=== PATIENT | female | born 1940 | race Native Hawaiian/Other Pacific Islander ===

== ENCOUNTER 2017-01-09 09:43 | Inpatient (IN) | payer MEDICARE, OTHER ==
[2017-01-09 09:58] VITALS: BMI 32.6
[2017-01-09] MEDS ORDERED: Sodium Chloride 0.9% 1,000 ML IV STA (10:15)
[2017-01-09] MEDS ORDERED: Iohexol 240 (50 ml) PO STA (10:15)
[2017-01-09] MEDS ORDERED: Iohexol 240 (50 ml) ONE (10:25)
[2017-01-09] MEDS ORDERED: Sodium Chloride 0.9% 1,000 ML ONE (10:25)
--- NOTE | 2017-01-09 10:41 | C.PDOC ---
History Of Present Illness 76 y/o female presents to the ED with complains of RUQ abdominal pain x3 days with associated nausea and vomiting since last night. Pt denies fever, chills, chest pain, SOB, urinary symptoms or any other complaints. Time Seen by Provider: 01/09/17 10:08 Chief Complaint (Nursing): Abdominal Pain History Per: Patient History/Exam Limitations: no limitations Onset/Duration Of Symptoms: Days Current Symptoms Are (Timing): Still Present Location Of Pain/Discomfort: RUQ Radiation Of Pain To:: None Quality Of Discomfort: "Pain" Associated Symptoms: Nausea, Vomiting. denies: Fever, Chills, Diarrhea, Chest Pain, Urinary Symptoms Exacerbating Factors: None Alleviating Factors: None Recent travel outside of the [place]: No Past Medical History Vital Signs: Last Vital Signs Temp 97.5 F L 01/09/17 16:47 Pulse 67 01/09/17 16:47 Resp 20 01/09/17 16:47 BP 113/63 01/09/17 16:47 Pulse Ox 98 01/09/17 16:47 - Medical History PMH: CHF, COPD, HTN - [facility] Procedures EXCISION OF STOMACH, ENDO, DIAGN (08/05/16) INSERTION OF INFUSION DEV INTO SUP VENA CAVA, PERC APPROACH (08/05/16) TRANSFUSE NONAUT RED BLOOD CELLS IN PERIPH VEIN, PERC (08/05/16) ULTRASONOGRAPHY OF SUPERIOR VENA CAVA, GUIDANCE (08/05/16) Family History: States: Unknown Family Hx - Social History Hx Alcohol Use: No Hx Substance Use: No Review Of Systems Except As Marked, All Systems Reviewed And Found Negative. Constitutional: Negative for: Fever, Chills Cardiovascular: Negative for: Chest Pain Respiratory: Negative for: Shortness of Breath Gastrointestinal: Positive for: Nausea, Vomiting, Abdominal Pain. Negative for : Diarrhea Genitourinary: Negative for: Dysuria, Hematuria Physical Exam - Physical Exam Appears: Non-toxic, No Acute Distress, Unkempt, Other (smells of urine) Skin: Warm, Dry, No Rash Head: Atraumatic, Normacephalic Oral Mucosa: Moist Neck: Normal ROM, Supple Chest: Symmetrical Cardiovascular: Rhythm Regular, No Murmur Respiratory: Normal Breath Sounds, No Rales, No Rhonchi, No Wheezing Gastrointestinal/Abdominal: Soft, Tenderness (RLQ), No Guarding, No Rebound Extremity: Normal ROM Extremity: Bilateral: Atraumatic Neurological/Psych: Oriented x3 ED Course And Treatment - Laboratory Results Result Diagrams: 01/09/17 10:27 01/09/17 10:27 O2 Sat by Pulse Oximetry: 98 (on room air) Pulse Ox Interpretation: Normal - CT Scan/US Abdomen/pelvis Other Rad Studies (CT/US): Read By Radiologist, Radiology Report Reviewed CT/US Interpretation: Accession No. : [id number]. Patient Name / ID : DIAZ EL / [id number]. Exam Date : 01/09/2017 13:11:32 ( Approved ). Study Comment : Sex / Age : F / 76Y. Creator : Silverio Aparicio MD. Dictator : Silverio Aparicio MD. Retail Store Associate : Behavioral Health Worker : Silverio Aparicio MD. Approver2 : Report Date : 01/09/2017 14:00:51. My Comment : . PROCEDURE: CT Abdomen and Pelvis with Oral contrast. HISTORY: R sided abdominal pain/vomiting. COMPARISON: CT from 03/02/2013. TECHNIQUE: Contiguous axial images of the abdomen and pelvis. IV and Oral contrast was administered. Coronal and Sagittal reformats generated. Contrast dose: Radiation dose: Total exam DLP = 874.78 mGy-cm. FINDINGS: LOWER THORAX: Mild bibasilar atelectatic changes noted. Segments of bronchiectasis noted in the medial left lower lobe. LIVER: Probable hepatic cysts. GALLBLADDER AND BILE DUCTS: Unremarkable. PANCREAS: Unremarkable. No mass. No ductal dilatation. SPLEEN: Unremarkable. No splenomegaly. ADRENALS: 1 centimeter adrenal nodule, marginally increased in size when compared to the prior CT. KIDNEYS AND URETERS: Irregularity of both renal cortices likely from old injury versus infection. Otherwise symmetric nephrograms. BLADDER: Grossly unremarkable. REPRODUCTIVE: Unremarkable. APPENDIX: Unremarkable. BOWEL: Unremarkable. No obstruction. No gross mural thickening. Collapsed large bowel, limiting evaluation. Oral contrast has reached the distal small bowel at the time of evaluation. Hiatal hernia once again noted. Collapsed stomach limiting evaluation. PERITONEUM: Unremarkable. No fluid collection. No free air. LYMPH NODES: No bulky lymphadenopathy. VASCULATURE: Unremarkable. No aortic aneurysm. BONES: T12 compression deformity, essentially unchanged. OTHER FINDINGS: Fat containing ventral hernia. IMPRESSION: No acute bowel pathology. Slightly limited evaluation due to collapse configuration of the large bowel. 1 centimeter adrenal nodule, marginally increased in size when compared to prior CT from 05/2013. T12 compression deformity, essentially unchanged since prior CT. Atelectasis and bronchiectasis in the medial aspect of the left lower lobe, essentially unchanged. Progress Note: Plan: CT abdomen, labs, UA, IV fluids, zofran, protonix. On re- exam patient sts she still feels nauseous. Pt's PMD was called and accepted patient for observation. Disposition - Disposition Disposition: HOSPITALIZED Disposition Time: 15:39 Condition: FAIR - Clinical Impression Clinical Impression: Gastroenteritis - PA / INTERNET RETAILER / Resident Statement MD/DO has reviewed & agrees with the documentation as recorded. - Scribe Statement The provider has reviewed the documentation as recorded by the Lamonte Edwards All medical record entries made by the Lamonte were at my direction and personally dictated by me. I have reviewed the chart and agree that the record accurately reflects my personal performance of the history, physical exam, medical decision making, and the department course for this patient. I have also personally directed, reviewed, and agree with the discharge instructions and disposition. Decision To Admit - Pt Status Changed To: Hospital Disposition Of: Observation - . Bed Request Type: Regular Admitting Physician: Zeeshan Garcia Patient Diagnosis: Gastroenteritis
[2017-01-09 10:46] LABS: BASO # 0.1 K/uL (0.0-0.2); BASO % 0.4 % (0.0-2.0); EOS % 0.1 % (0.0-4.0); HEMATOCRIT 39.8 % (34.0-47.0); LYMPH # 1.3 K/uL (1.0-4.3); LYMPH % 8.7 % (20.0-40.0); MEAN CELL VOLUME 78.6 fL (81.0-99.0); MEAN CORPUSCULAR HEMOGLOBIN 26.9 pg (27.0-31.0); MEAN CORPUSCULAR HGB CONC 34.2 g/dL (33.0-37.0); MEAN PLATELET VOLUME 7.7 fL (7.2-11.7); MONO # 0.5 K/uL (0.0-0.8); MONO % 3.6 % (0.0-10.0); PLATELET COUNT 442 K/uL (130-400); RED CELL DISTRIBUTION WIDTH 13.9 % (11.5-14.5)
[2017-01-09 10:52] LABS: CHLORIDE 89 mmol/L (98-107)
[2017-01-09 10:53] LABS: POTASSIUM 3.6 mmol/L (3.6-5.2); SODIUM 130 mmol/L (132-148)
[2017-01-09 10:55] LABS: ALB/GLOB RATIO 1.1 (1.0-2.1); ALKALINE PHOSPHATASE 201 U/L (38-126); AST/SGOT 27 U/L (14-36); BILIRUBIN,TOTAL 0.6 mg/dL (0.2-1.3); BLOOD UREA NITROGEN 14 mg/dL (7-17); CARBON DIOXIDE 24 mmol/L (22-30); GFR AFRICAN-AMERICAN > 60
[2017-01-09 10:56] LABS: ALT/SGPT 33 U/L (9-52); GLUCOSE,RANDOM 139 mg/dL (65-105)
[2017-01-09 11:14] LABS: BASOPHIL 1 % (0-2); NEUTROPHIL 83 % (50-75); TOTAL CELLS COUNTED 100
[2017-01-09 11:54] LABS: RBC URINE 1 /hpf (0-3); URINE BILIRUBIN NEGATIVE (NEGATIVE); URINE BLOOD NEGATIVE (NEGATIVE); URINE COLOR Straw (YELLOW); URINE GLUCOSE (UA) NORMAL (Normal); URINE KETONE NEGATIVE (NEGATIVE); URINE LEUKOCYTE ESTERASE NEG Leu/uL (Negative); URINE PROTEIN 2+ mg/dL (NEGATIVE); URINE UROBILINOGEN NORMAL mg/dL (0.2-1.0)
[2017-01-09] MEDS ORDERED: Iodixanol 320 MG/ML 100 ML BOTTLE IV ONE (13:01)
--- NOTE | 2017-01-09 14:02 | CT ---
PROCEDURE: CT Abdomen and Pelvis with Oral contrast. HISTORY: R sided abdominal pain/vomiting COMPARISON: CT from 03/02/2013. TECHNIQUE: Contiguous axial images of the abdomen and pelvis. IV and Oral contrast was administered. Coronal and Sagittal reformats generated. Contrast dose: Radiation dose: Total exam DLP = 874.78 mGy-cm. FINDINGS: LOWER THORAX: Mild bibasilar atelectatic changes noted. Segments of bronchiectasis noted in the medial left lower lobe. LIVER: Probable hepatic cysts. GALLBLADDER AND BILE DUCTS: Unremarkable. PANCREAS: Unremarkable. No mass. No ductal dilatation. SPLEEN: Unremarkable. No splenomegaly. ADRENALS: 1 centimeter adrenal nodule, marginally increased in size when compared to the prior CT. KIDNEYS AND URETERS: Irregularity of both renal cortices likely from old injury versus infection. Otherwise symmetric nephrograms. BLADDER: Grossly unremarkable. REPRODUCTIVE: Unremarkable. APPENDIX: Unremarkable. BOWEL: Unremarkable. No obstruction. No gross mural thickening. Collapsed large bowel, limiting evaluation. Oral contrast has reached the distal small bowel at the time of evaluation. Hiatal hernia once again noted. Collapsed stomach limiting evaluation. PERITONEUM: Unremarkable. No fluid collection. No free air. LYMPH NODES: No bulky lymphadenopathy. VASCULATURE: Unremarkable. No aortic aneurysm. BONES: T12 compression deformity, essentially unchanged. OTHER FINDINGS: Fat containing ventral hernia. IMPRESSION: No acute bowel pathology. Slightly limited evaluation due to collapse configuration of the large bowel. 1 centimeter adrenal nodule, marginally increased in size when compared to prior CT from 03/02/2013. T12 compression deformity, essentially unchanged since prior CT. Atelectasis and bronchiectasis in the medial aspect of the left lower lobe, essentially unchanged.
--- NOTE | 2017-01-09 20:46 | HP ---
HISTORY OF PRESENT ILLNESS: This is a 76-year-old Brazilian female who came to the Emergency Room with a history of severe abdominal pain. The pain is in the right upper quadrant. The patient has had th is pain for the last 3 days. The patient also complained of nausea and vomiting since last night. T he patient denies having any fever or chills. The patient complains of pain in the chest. No shortn ess of breath. The patient denies any urinary complaint. REVIEW OF SYSTEMS: CARDIOVASCULAR: Positive for chest pain. RESPIRATORY: Positive for shortness of breath. GASTROINTESTINAL: Positive for nausea and vomiting and abdominal pain. CENTRAL NERVOUS SYSTEM: Generalized weakness. GENITOURINARY: No urinary complaints. No fever. PSYCHIATRIC: The patient is stable. All other systems are negative. PAST MEDICAL HISTORY: History of congestive heart failure, chronic obstructive pulmonary disease, an d hypertension. MEDICATIONS: Are reviewed by me. ALLERGIES: No known allergy. FAMILY HISTORY: No known inherited disease. SOCIAL HISTORY: Nonsmoker, nonalcoholic. PHYSICAL EXAMINATION: GENERAL: This is a 76-year-old Brazilian female, alert, oriented. VITAL SIGNS: Temperature 97.5, pulse 67, respiration 20, blood pressure 113/63 mmHg, pulse ox is 98% at room air. HEENT: Normal. NECK: JVP is flat. Carotids, no bruit. LUNGS: No rales, no wheezing. HEART: S1, S2 normal. No gallop, no murmur. ABDOMEN: Soft, nontender, no organomegaly. CENTRAL NERVOUS SYSTEM: No focal neurological deficit. EXTREMITIES: No edema of the legs. LABORATORY DATA: On admission, white cell count is elevated to 15,000. Hemoglobin is 13.6. Sodium is 130. Blood sugar is 139. The patient had a CAT scan of the abdomen done, which is unremarkable. IMPRESSION: 1. Severe abdominal pain. Acute gastritis. Rule out acute diverticulitis. 2. Leukocytosis. 3. Hyponatremia. 4. Arteriosclerotic heart disease. PLAN: The patient will be admitted to the floor. Will get GI evaluation. Will give IV fluids and I V antibiotics. Other workup as needed. Zeeshan Garcia MD cc: [phone] TT: 01/09/2017 20:46:42 dn
[2017-01-09] MEDS: Piperacill/Tazo 3.375gm in Dex 50 ML IVPB SCH (22:47)
[2017-01-09] MEDS: Dextrose 5%/0.9% NS 1,000 ML IV SCH (22:48)
[2017-01-10] MEDS: Piperacill/Tazo 3.375gm in Dex 50 ML IVPB SCH ×3 (03:29→20:30)
[2017-01-10] MEDS: Dextrose 5%/0.9% NS 1,000 ML IV SCH ×2 (06:11→15:24)
[2017-01-10] MEDS ORDERED: Albuterol 0.083% Inhal Sol (2.5 mg/3 mL) UD INH ONE (09:37)
--- NOTE | 2017-01-10 10:08 | CP.PCM.CON ---
<Gardenia Christensen - Last Filed: 01/10/17 11:20> History of Present Illness - History of Present Illness History of Present Illness: Gastroenterology Fellow/PGY4 Consult Note 76 year old female with history of COPD, Hypertension, and Upper GI bleed secondary to PUD 07/2016 presenting with abdominal pain. Son at bedside provides translation assistance. Patient states right upper abdominal pain since Thursday not relieved by lidoderm cream provided by PCP. Family reports a fall four weeks ago onto right side after missing one step. Patient was given lidoderm cream and patch for relief. She did not like the patch so she has not been using it. She describes it as intermittent, wax/waning without radiation to back or other abdominal quadrants. Associated nausea without vomiting. Son notes onset of diarrhea four days ago that resolved with progression to the abdominal pain. At present, pain is a 6/10 with ongoing nausea and loss of appetite since Thursday. Denies diarrhea at present, vomiting, fever, chills, sweats, postprandial pain, bloating, indigestion, heartburn, acid reflux, abdominal distension, weight loss, melena, hematochezia, hematemesis, sick contacts, recent antibiotics, or recent travel. Denies NSAID use or alcohol use. Prior EGD 07/2016 with multiple linear gastric ulcers, 1.5cm gastric ulcerated nodule, diffuse duodenal bulb erosions, and H pylori positive. No prior colonoscopy. Family-denies colon cancer Social-denies tobacco, alcohol, illicit drug use Surgery- none Review of Systems - Review of Systems Review of Systems: A 12-point review of systems negative except for as above Past Patient History - Infectious Disease Hx of Infectious Diseases: None - Past Medical History & Family History Past Medical History?: Yes - Past Social History Smoking Status: Current Some Days Smoker - CARDIAC Hx Congestive Heart Failure: Yes Hx Hypertension: Yes - PULMONARY Hx Chronic Obstructive Pulmonary Disease (COPD): Yes - MUSCULOSKELETAL/RHEUMATOLOGICAL Hx Falls: No - GENITOURINARY/GYNECOLOGICAL Hx Incontinence: Yes - PSYCHIATRIC Hx Substance Use: No - SURGICAL HISTORY Hx Surgeries: No - ANESTHESIA Hx Anesthesia: No Meds Allergies/Adverse Reactions: Allergies Allergy/AdvReac Type Severity Reaction Status Date / Time No Known Allergies Allergy Verified 01/09/17 09:57 - Medications Medications: Current Medications Albuterol Sulfate (Albuterol 0.083% Inhal Raissa (2.5 Mg/3 Ml) Ud) 2.5 mg INH RQ6 [facility] Clonidine HCl (Catapres) 0.2 mg PO BID [facility] Enoxaparin Sodium (Lovenox) 40 mg SC DAILY [facility] Furosemide (Lasix) 20 mg PO DAILY [facility] Dextrose/Sodium Chloride (Dextrose 5%/0.9% Ns 1000 Ml) 1,000 mls @ 100 mls/hr IV .Q10H [facility] Last Admin: 01/10/17 06:11 Dose: Not Given Piperacillin Sod/Tazobactam Sod (Zosyn 3.375 Gm Iv Premix) 50 mls @ 100 mls/hr IVPB Q8H [facility] Last Admin: 01/10/17 03:29 Dose: 100 mls/hr Influenza Virus Vaccine (Afluria) 45 mcg IM .ONCE ONE Stop: 01/11/17 10:01 Losartan Potassium (Cozaar) 100 mg PO DAILY [facility] Metoprolol Succinate (Toprol Xl) 100 mg PO DAILY [facility] Morphine Sulfate (Morphine) 2 mg IVP Q6 PRN PRN Reason: Pain, moderate (4-7) Ondansetron HCl (Zofran Inj) 4 mg IVP Q6 PRN PRN Reason: Nausea/Vomiting Pantoprazole Sodium (Protonix Inj) 40 mg IVP DAILY [facility] Pneumococcal Polyvalent Vaccine (Pneumovax 23 Vaccine) 0.5 ml IM .ONCE ONE Stop: 01/11/17 10:01 Physical Exam - Constitutional Appears: Non-toxic, No Acute Distress - Head Exam Head Exam: ATRAUMATIC, NORMOCEPHALIC - Eye Exam Eye Exam: EOMI, PERRL Pupil Exam: PERRL. absent: Miosis, Mydriatic - ENT Exam ENT Exam: Mucous Membranes Moist, Normal Oropharynx - Neck Exam Neck exam: Positive for: Full Rom, Normal Inspection - Respiratory Exam Respiratory Exam: Clear to Auscultation Bilateral. absent: Rales, Rhonchi, Wheezes - Cardiovascular Exam Cardiovascular Exam: RRR, +S1, +S2. absent: Gallop, Rubs - GI/Abdominal Exam GI & Abdominal Exam: Hernia, Normal Bowel Sounds, Soft, Tenderness. absent: Distended, Firm, Guarding, Organomegaly, Rebound, Rigid Additional comments: RUQ tenderness, negative Garcia's sign, umbilical hernia - Extremities Exam Extremities exam: Positive for: full ROM, pedal edema - Neurological Exam Neurological exam: Alert - Psychiatric Exam Psychiatric exam: Normal Affect, Normal Mood - Skin Skin Exam: Dry, Intact, Normal Color, Warm Results - Vital Signs Recent Vital Signs: Last Vital Signs Temp 98.0 F 01/10/17 08:11 Pulse 84 01/10/17 08:11 Resp 20 01/10/17 08:11 BP 170/85 H 01/10/17 08:11 Pulse Ox 96 01/10/17 08:11 - Labs Result Diagrams: 01/09/17 10:27 01/09/17 10:27 Assessment & Plan - Assessment and Plan (Free Text) Assessment: 76 year old female with history of COPD, Hypertension, and Upper GI bleed secondary to PUD 07/2016 presenting with abdominal pain. CT A/P showing hepatic cysts, unremarkable gallbladder, and normal bowel loops. Prior EGD 07/2016 with multiple linear gastric ulcers, 1.5cm gastric ulcerated nodule, diffuse duodenal bulb erosions, and H pylori positive. No prior colonoscopy. Right upper quadrant pain Rib cage pain Nausea/diarrhea Plan: >ordered rib xray to evaluate for fracture >if diarrhea recurs- send Cdiff , stool culture >ordered Abdominal U/S to evaluate hepatic cysts >on Zosyn >continue supportive care: PPI, IVFs, pain control, anti-emetics >recommend elective EGD for PUD surveillance outpatient >further recommendations as follow clinical course <Shahbaz BOSWELL,Dashawn - Last Filed: 01/10/17 12:04> Meds - Medications Medications: Current Medications Albuterol Sulfate (Albuterol 0.083% Inhal Raissa (2.5 Mg/3 Ml) Ud) 2.5 mg INH RQ6 [facility] Clonidine HCl (Catapres) 0.2 mg PO BID [facility] Last Admin: 01/10/17 11:01 Dose: 0.2 mg Enoxaparin Sodium (Lovenox) 40 mg SC DAILY [facility] Last Admin: 01/10/17 11:01 Dose: 40 mg Furosemide (Lasix) 20 mg PO DAILY [facility] Last Admin: 01/10/17 11:00 Dose: 20 mg Dextrose/Sodium Chloride (Dextrose 5%/0.9% Ns 1000 Ml) 1,000 mls @ 100 mls/hr IV .Q10H [facility] Last Admin: 01/10/17 06:11 Dose: Not Given Piperacillin Sod/Tazobactam Sod (Zosyn 3.375 Gm Iv Premix) 50 mls @ 100 mls/hr IVPB Q8H [facility] Last Admin: 01/10/17 03:29 Dose: 100 mls/hr Influenza Virus Vaccine (Afluria) 45 mcg IM .ONCE ONE Stop: 01/11/17 10:01 Losartan Potassium (Cozaar) 100 mg PO DAILY [facility] Last Admin: 01/10/17 11:01 Dose: 100 mg Metoprolol Succinate (Toprol Xl) 100 mg PO DAILY [facility] Last Admin: 01/10/17 11:01 Dose: 100 mg Morphine Sulfate (Morphine) 2 mg IVP Q6 PRN PRN Reason: Pain, moderate (4-7) Ondansetron HCl (Zofran Inj) 4 mg IVP Q6 PRN PRN Reason: Nausea/Vomiting Pantoprazole Sodium (Protonix Inj) 40 mg IVP DAILY [facility] Last Admin: 01/10/17 11:00 Dose: 40 mg Pneumococcal Polyvalent Vaccine (Pneumovax 23 Vaccine) 0.5 ml IM .ONCE ONE Stop: 01/11/17 10:01 Results - Vital Signs Recent Vital Signs: Last Vital Signs Temp 98.0 F 01/10/17 08:11 Pulse 84 01/10/17 08:11 Resp 20 01/10/17 08:11 BP 178/80 H 01/10/17 11:00 Pulse Ox 96 01/10/17 08:11 - Labs Result Diagrams: 01/09/17 10:27 01/09/17 10:27 Attending/Attestation - Attestation I have personally seen and examined this patient.: Yes I have fully participated in the care of the patient.: Yes I have reviewed all pertinent clinical information: Yes Notes (Text): 01/10/17 11:58 76 year old female with history of COPD, Hypertension, and Upper GI bleed secondary to PUD 07/2016 presenting with abdominal pain. CT A/P showing hepatic cysts, unremarkable gallbladder, and normal bowel loops. Prior EGD 07/2016 with multiple linear gastric ulcers, 1.5cm gastric ulcerated nodule, diffuse duodenal bulb erosions, and H pylori positive. Giving history of fall at home after losing footing on stairs. Pain started post fall. was given lidoderm patch and gel for pain which she removed few days ago and pain persisted. She states pain is worse on laying on left shoulder. Has significant pain on deep palpation of left last rib. Will get X ray rib and follow. Continue PPI and clear liquid diet. Follow abdominal sonogram
[2017-01-10] MEDS: Metoprolol Succinate 100 mg XL Tab PO SCH (11:01)
[2017-01-10] MEDS: Enoxaparin 40 mg Syringe SC SCH (11:01)
--- NOTE | 2017-01-10 11:08 | CP.PCM.PN ---
Subjective - Date & Time of Evaluation Date of Evaluation: 01/10/17 Time of Evaluation: 11:06 - Subjective Subjective: C/O ABD PAIN. POOR APPETITE. NO CP. LABS AWAITING. Objective - Vital Signs/Intake and Output Vital Signs (last 24 hours): Temp Pulse Resp BP Pulse Ox 98.0 F 84 20 178/80 H 96 01/10/17 08:11 01/10/17 08:11 01/10/17 08:11 01/10/17 11:00 01/10/17 08:11 Intake and Output: 01/10/17 01/10/17 06:59 18:59 Intake Total 950 Output Total 300 Balance 650 - Medications Medications: Current Medications Albuterol Sulfate (Albuterol 0.083% Inhal Raissa (2.5 Mg/3 Ml) Ud) 2.5 mg INH RQ6 [facility] Clonidine HCl (Catapres) 0.2 mg PO BID [facility] Last Admin: 01/10/17 11:01 Dose: 0.2 mg Enoxaparin Sodium (Lovenox) 40 mg SC DAILY [facility] Last Admin: 01/10/17 11:01 Dose: 40 mg Furosemide (Lasix) 20 mg PO DAILY [facility] Last Admin: 01/10/17 11:00 Dose: 20 mg Dextrose/Sodium Chloride (Dextrose 5%/0.9% Ns 1000 Ml) 1,000 mls @ 100 mls/hr IV .Q10H [facility] Last Admin: 01/10/17 06:11 Dose: Not Given Piperacillin Sod/Tazobactam Sod (Zosyn 3.375 Gm Iv Premix) 50 mls @ 100 mls/hr IVPB Q8H [facility] Last Admin: 01/10/17 03:29 Dose: 100 mls/hr Influenza Virus Vaccine (Afluria) 45 mcg IM .ONCE ONE Stop: 01/11/17 10:01 Losartan Potassium (Cozaar) 100 mg PO DAILY [facility] Last Admin: 01/10/17 11:01 Dose: 100 mg Metoprolol Succinate (Toprol Xl) 100 mg PO DAILY [facility] Last Admin: 01/10/17 11:01 Dose: 100 mg Morphine Sulfate (Morphine) 2 mg IVP Q6 PRN PRN Reason: Pain, moderate (4-7) Ondansetron HCl (Zofran Inj) 4 mg IVP Q6 PRN PRN Reason: Nausea/Vomiting Pantoprazole Sodium (Protonix Inj) 40 mg IVP DAILY [facility] Last Admin: 01/10/17 11:00 Dose: 40 mg Pneumococcal Polyvalent Vaccine (Pneumovax 23 Vaccine) 0.5 ml IM .ONCE ONE Stop: 01/11/17 10:01 - Constitutional Appears: No Acute Distress, Chronically Ill - Eye Exam Eye Exam: Normal appearance, PERRL - ENT Exam ENT Exam: Normal Exam - Neck Exam Neck Exam: Normal Inspection - Respiratory Exam Respiratory Exam: Clear to Ausculation Bilateral, NORMAL BREATHING PATTERN - Cardiovascular Exam Cardiovascular Exam: REGULAR RHYTHM, +S1, +S2 - GI/Abdominal Exam GI & Abdominal Exam: Soft, Tenderness, Normal Bowel Sounds - Extremities Exam Extremities Exam: Full ROM, Normal Capillary Refill, Normal Inspection. absent : Joint Swelling, Pedal Edema - Back Exam Back Exam: NORMAL INSPECTION - Neurological Exam Neurological Exam: Alert, Awake, CN II-XII Intact, Normal Gait, Oriented x3 - Psychiatric Exam Psychiatric exam: Normal Affect, Normal Mood Assessment and Plan - Assessment and Plan (Free Text) Assessment: R/O ACUTE DIVERTICULITIS. ABD PAIN. Plan: GI EVAL NOTED. CT ZOSYN.
[2017-01-10] MEDS: Albuterol 0.083% Inhal Sol (2.5 mg/3 mL) UD INH SCH ×2 (14:44→19:40)
--- NOTE | 2017-01-10 18:31 | RAD ---
PROCEDURE: Bilateral ribs dated 01/10/2017. HISTORY: fall, rule out rib fracture COMPARISON: Comparison made with chest radiograph 08/05/2016 TECHNIQUE: Frontal view of the chest and 3 additional views of the right and left ribs performed FINDINGS: Heart is enlarged. No obvious pneumothorax. . Aorta is slightly ectatic and uncoiled. Suspect mild left basilar atelectasis and or lung parenchymal contusion. There is a fracture of the left posterior 9th rib. No other definitive fractures seen however note that the lower right and left ribs are poorly seen of. Followup CT scan could be performed if further evaluation is required. IMPRESSION: Fracture left posterior 9th rib. There appears to be left lower lobe atelectasis and/or contusional changes. No other definitive fractures seen however note that the lower left and right ribs are poorly delineated on this study. Followup studies could be performed if further evaluation is required.
--- NOTE | 2017-01-10 19:02 | US ---
Abdominal ultrasound dated 01/11/20. History: Hepatic cysts. Sonographic evaluation of the abdomen performed. Comparison made with CT scan abdomen and pelvis dated 01/09/2017. Note that the examination is somewhat limited Findings: The liver exhibits normal size measuring approximately 16 cm in CC dimension. Liver demonstrates smooth contour and relatively decreased homogeneous echotexture. No obvious hepatic mass or collection. Small cyst right lobe liver measuring approximately 1.7 x 1.3 x 1.8 cm which contains a small central echogenic focus possibly and representing a small septation. . A 2nd smaller this cyst slightly more anteriorly located in the inferior aspect right lobe liver is poorly seen on this study. Please refer to prior CT scan for additional details. . Gallbladder is physiologically distended. No evidence of intraluminal gallbladder calculi. No pericholecystic fluid collections or sonographic Garcia sign. Common bile duct measures 6.5 mm. Visualized portions the pancreas unremarkable. Spleen exhibits normal size and attenuation pattern without mass collection or calcification. Kidneys exhibit mild asymmetry right side of which is smaller than the left. Cortical scarring and atrophic changes involving the cortex upper pole right kidney of less well seen on this study compared to high-resolution CT scan. . . No evidence of nephrolithiasis or hydronephrosis. There appears to be a small parapelvic cyst right kidney measuring approximate 1.2 cm in greatest dimension. Kidneys also exhibit slight increased echotexture of possibly due to underlying mild medical renal disease Impression: Limited study. Cortical scarring/atrophic changes upper pole right kidney. Suspect small parapelvic cyst right kidney. Small hepatic cysts inferior aspect right lobe liver one of which on is seen on the current study and the other smaller cystic focus poorly seen
[2017-01-11] MEDS: Dextrose 5%/0.9% NS 1,000 ML IV SCH ×3 (01:15→21:45)
[2017-01-11] MEDS: Albuterol 0.083% Inhal Sol (2.5 mg/3 mL) UD INH SCH ×4 (01:18→19:45)
[2017-01-11] MEDS: Piperacill/Tazo 3.375gm in Dex 50 ML IVPB SCH ×3 (04:00→20:10)
--- NOTE | 2017-01-11 09:41 | CP.PCM.PN ---
<Gardenia Christensen - Last Filed: 01/11/17 13:34> Subjective - Date & Time of Evaluation Date of Evaluation: 01/11/17 Time of Evaluation: 09:38 - Subjective Subjective: Gastroenterology Fellow/PGY4 Progress Note Patient continues to have abdominal pain on the right upper abdomen, pain scale 7/10. Tolerating regular diet. A 12-point review of systems negative except for as above. Objective - Vital Signs/Intake and Output Vital Signs (last 24 hours): Temp Pulse Resp BP Pulse Ox 97.6 F 56 L 20 145/74 98 01/11/17 07:45 01/11/17 07:45 01/11/17 07:45 01/11/17 07:45 01/11/17 07:45 Intake and Output: 01/11/17 01/11/17 06:59 18:59 Intake Total 300 Output Total 250 Balance 50 - Medications Medications: Current Medications Albuterol Sulfate (Albuterol 0.083% Inhal Raissa (2.5 Mg/3 Ml) Ud) 2.5 mg INH RQ6 [facility] Last Admin: 01/11/17 08:33 Dose: Not Given Clonidine HCl (Catapres) 0.2 mg PO BID [facility] Last Admin: 01/10/17 18:34 Dose: 0.2 mg Enoxaparin Sodium (Lovenox) 40 mg SC DAILY [facility] Last Admin: 01/10/17 11:01 Dose: 40 mg Furosemide (Lasix) 20 mg PO DAILY [facility] Last Admin: 01/10/17 11:00 Dose: 20 mg Dextrose/Sodium Chloride (Dextrose 5%/0.9% Ns 1000 Ml) 1,000 mls @ 100 mls/hr IV .Q10H [facility] Last Admin: 01/10/17 15:24 Dose: Not Given Piperacillin Sod/Tazobactam Sod (Zosyn 3.375 Gm Iv Premix) 50 mls @ 100 mls/hr IVPB Q8H [facility] Last Admin: 01/11/17 04:00 Dose: 100 mls/hr Influenza Virus Vaccine (Afluria) 45 mcg IM .ONCE ONE Stop: 01/11/17 10:01 Losartan Potassium (Cozaar) 100 mg PO DAILY [facility] Last Admin: 01/10/17 11:01 Dose: 100 mg Metoprolol Succinate (Toprol Xl) 100 mg PO DAILY [facility] Last Admin: 01/10/17 11:01 Dose: 100 mg Morphine Sulfate (Morphine) 2 mg IVP Q6 PRN PRN Reason: Pain, moderate (4-7) Last Admin: 01/11/17 04:04 Dose: 2 mg Ondansetron HCl (Zofran Inj) 4 mg IVP Q6 PRN PRN Reason: Nausea/Vomiting Pantoprazole Sodium (Protonix Inj) 40 mg IVP DAILY [facility] Last Admin: 01/10/17 11:00 Dose: 40 mg Pneumococcal Polyvalent Vaccine (Pneumovax 23 Vaccine) 0.5 ml IM .ONCE ONE Stop: 01/11/17 10:01 - Constitutional Appears: Non-toxic, No Acute Distress - Head Exam Head Exam: ATRAUMATIC, NORMOCEPHALIC - Eye Exam Eye Exam: EOMI, PERRL Pupil Exam: PERRL. absent: Miosis, Mydriatic - ENT Exam ENT Exam: Mucous Membranes Moist, Normal Oropharynx - Neck Exam Neck Exam: Full ROM, Normal Inspection - Respiratory Exam Respiratory Exam: Clear to Ausculation Bilateral. absent: Rales, Rhonchi, Wheezes - Cardiovascular Exam Cardiovascular Exam: RRR, +S1, +S2. absent: Gallop, Rubs - GI/Abdominal Exam GI & Abdominal Exam: Soft, Tenderness, Normal Bowel Sounds. absent: Distended, Firm, Guarding, Rigid, Organomegaly, Rebound Additional comments: right flank/RUQ tenderness at rib cage inferior margin - Extremities Exam Extremities Exam: Full ROM. absent: Pedal Edema - Neurological Exam Neurological Exam: Alert, Awake - Psychiatric Exam Psychiatric exam: Normal Affect, Normal Mood - Skin Skin Exam: Dry, Intact, Normal Color, Warm Assessment and Plan - Assessment and Plan (Free Text) Assessment: 76 year old female with history of COPD, Hypertension, and Upper GI bleed secondary to PUD 07/2016 presenting with right sided abdominal pain. Further history with attending translation elicits recent fall at home with landing on right side after missing last step on stairs. CT A/P showing hepatic cysts, unremarkable gallbladder, and normal bowel loops. Prior EGD 07/2016 with multiple linear gastric ulcers, 1.5cm gastric ulcerated nodule, diffuse duodenal bulb erosions, and H pylori positive. No prior colonoscopy. Rib cage pain Plan: >rib xray-left 9th rib fracture, limited evaluation of lower B/L ribcage >Abdominal U/S-small hepatic cysts >on Zosyn with primary team- concern for diverticulitis >CT imaging without diverticulitis >ordered labs for today to re-evaluate WBC, ALP trend >ordered GGT >consider ALP isoenzymes if increasing trend of ALP on liver profile to evaluate for bone etiology >continue supportive care: PPI, IVFs, pain control, anti-emetics >tolerating regular diet >recommend elective EGD for PUD surveillance outpatient <Dashawn Hartmann MD - Last Filed: 01/11/17 13:40> Objective - Vital Signs/Intake and Output Vital Signs (last 24 hours): Temp Pulse Resp BP Pulse Ox 97.6 F 55 L 20 145/74 99 01/11/17 07:45 01/11/17 12:36 01/11/17 07:45 01/11/17 10:50 01/11/17 12:36 Intake and Output: 01/11/17 01/11/17 06:59 18:59 Intake Total 300 Output Total 250 Balance 50 - Medications Medications: Current Medications Albuterol Sulfate (Albuterol 0.083% Inhal Raissa (2.5 Mg/3 Ml) Ud) 2.5 mg INH RQ6 [facility] Last Admin: 01/11/17 08:33 Dose: Not Given Clonidine HCl (Catapres) 0.2 mg PO BID [facility] Last Admin: 01/11/17 10:50 Dose: 0.2 mg Enoxaparin Sodium (Lovenox) 40 mg SC DAILY [facility] Last Admin: 01/11/17 10:51 Dose: 40 mg Furosemide (Lasix) 20 mg PO DAILY [facility] Last Admin: 01/11/17 10:50 Dose: 20 mg Dextrose/Sodium Chloride (Dextrose 5%/0.9% Ns 1000 Ml) 1,000 mls @ 100 mls/hr IV .Q10H [facility] Last Admin: 01/11/17 12:22 Dose: Not Given Piperacillin Sod/Tazobactam Sod (Zosyn 3.375 Gm Iv Premix) 50 mls @ 100 mls/hr IVPB Q8H [facility] Last Admin: 01/11/17 12:01 Dose: 100 mls/hr Losartan Potassium (Cozaar) 100 mg PO DAILY [facility] Last Admin: 01/11/17 10:51 Dose: 100 mg Metoprolol Succinate (Toprol Xl) 100 mg PO DAILY [facility] Last Admin: 01/11/17 10:50 Dose: 100 mg Morphine Sulfate (Morphine) 2 mg IVP Q6 PRN PRN Reason: Pain, moderate (4-7) Last Admin: 01/11/17 10:50 Dose: 2 mg Ondansetron HCl (Zofran Inj) 4 mg IVP Q6 PRN PRN Reason: Nausea/Vomiting Pantoprazole Sodium (Protonix Inj) 40 mg IVP DAILY [facility] Last Admin: 01/11/17 10:51 Dose: 40 mg - Labs Labs: 01/11/17 10:30 01/11/17 10:30 Attending/Attestation - Attestation I have personally seen and examined this patient.: Yes I have fully participated in the care of the patient.: Yes I have reviewed all pertinent clinical information, including history, physical exam and plan: Yes Notes (Text): 01/11/17 13:36 Patient seen and examined with GI fellow on rounds this morning. This is a 76 year old female with history of COPD, Hypertension, and PUD in 07/2016 with H pylori positive s/p treatment as per son presenting with right sided abdominal pain. Interview in her language revealed that she had recent fall at home. CTAP with incidental findings of liver cysts. No sign or symptom of diverticulitis. Antibiotics can be discontinued. AL Po elevated due to bone fracture. No further GI evaluation necessary. Can be discharged to home with outpatient follow up with GI for repeat EGD for PUD healing.
[2017-01-11] MEDS ORDERED: Influenza Virus Vaccine 45 mcg/0.5 ml Syr IM ONE (10:00)
[2017-01-11] MEDS ORDERED: Pneumococcal 23-Valent Vaccine IM ONE (10:00)
[2017-01-11] MEDS: Metoprolol Succinate 100 mg XL Tab PO SCH (10:50)
[2017-01-11] MEDS: Enoxaparin 40 mg Syringe SC SCH (10:51)
[2017-01-11 11:11] LABS: BASO # 0.1 K/uL (0.0-0.2); BASO % 0.9 % (0.0-2.0); EOS # 0.3 K/uL (0.0-0.7); EOS % 2.2 % (0.0-4.0); HEMATOCRIT 33.1 % (34.0-47.0); LYMPH # 1.9 K/uL (1.0-4.3); LYMPH % 16.3 % (20.0-40.0); MEAN CORPUSCULAR HEMOGLOBIN 26.9 pg (27.0-31.0); MEAN CORPUSCULAR HGB CONC 33.6 g/dL (33.0-37.0); MEAN PLATELET VOLUME 7.6 fL (7.2-11.7); MONO # 0.8 K/uL (0.0-0.8); MONO % 6.8 % (0.0-10.0); RED CELL DISTRIBUTION WIDTH 13.8 % (11.5-14.5); WHITE BLOOD COUNT 11.8 K/uL (4.8-10.8)
[2017-01-11 11:23] LABS: CHLORIDE 93 mmol/L (98-107)
[2017-01-11 11:24] LABS: POTASSIUM 4.3 mmol/L (3.6-5.2); SODIUM 129 mmol/L (132-148)
[2017-01-11 11:26] LABS: ALB/GLOB RATIO 1.2 (1.0-2.1); ALKALINE PHOSPHATASE 133 U/L (38-126); AST/SGOT 24 U/L (14-36); BILIRUBIN,TOTAL 0.4 mg/dL (0.2-1.3); CARBON DIOXIDE 25 mmol/L (22-30); GFR AFRICAN-AMERICAN > 60
[2017-01-11 11:27] LABS: ALT/SGPT 27 U/L (9-52); BLOOD UREA NITROGEN 13 mg/dL (7-17); CALCIUM 8.1 mg/dl (8.6-10.4); GLUCOSE,RANDOM 88 mg/dL (65-105)
--- NOTE | 2017-01-11 16:40 | CP.PCM.CON ---
History of Present Illness - History of Present Illness History of Present Illness: 76 y/o female presents to the ED with complains of RUQ abdominal pain x3 days with associated nausea and vomiting since last night. Pt denies fever, chills, chest pain, SOB, urinary symptoms or any other complaints. REFERRED FOR ID EVAL R/O CHOLECYSTITIS GI ON BOARD IV RX IN PROGRESS - Medical History PMH: CHF, COPD, HTN VITILIGO Review of Systems - Constitutional Constitutional: Anorexia - EENT Eyes: absent: As Per HPI, Blind Spots, Blurred Vision, Change in Vision, Decreased Night Vision, Diplopia, Discharge, Dry Eye, Exophthalmos, Floaters, Irritation, Itchy Eyes, Loss of Peripheral Vision, Pain, Photophobia, Requires Corrective Lenses, Sees Flashes, Spots in Vision, Tunnel Vision, Other Visual Disturbances, Loss of Vision, Other Ears: absent: As Per HPI, Decreased Hearing, Ear Discharge, Ear Pain, Tinnitus, Abnormal Hearing, Disequilibrium, Dizziness, Other Nose/Mouth/Throat: absent: As Per HPI, Epistaxis, Nasal Congestion, Nasal Discharge, Nasal Obstruction, Nasal Trauma, Nose Pain, Post Nasal Drip, Sinus Pain, Sinus Pressure, Bleeding Gums, Change in Voice, Dental Pain, Dry Mouth, Dysphagia, Halitosis, Hoarsness, Lip Swelling, Mouth Lesions, Mouth Pain, Odynophagia, Sore Throat, Throat Swelling, Tongue Swelling, Facial Pain, Neck Pain, Neck Mass, Other - Breasts Breasts: absent: As Per HPI, Change in Shape, Mass, Pain, Nipple Discharge, Nipple Inversion, Skin Changes, Swelling, Other - Cardiovascular Cardiovascular: absent: As Per HPI, Acrocyanosis, Chest Pain, Chest Pain at Rest , Chest Pain with Activity, Claudication, Diaphoresis, Dyspnea, Dyspnea on Exertion, Edema, Irregular Heart Rhythm, Pain Radiating to Arm/Neck/Jaw, Leg Edema, Leg Ulcers, Lightheadedness, Orthopnea, Palpitations, Paroxysmal Nocturnal Dyspnea, Pedal Edema, Radiating Pain, Rapid Heart Rate, Slow Heart Rate, Syncope, Other - Respiratory Respiratory: absent: As Per HPI, Cough, Dyspnea, Hemoptysis, Dyspnea on Exertion , Wheezing, Snoring, Stridor, Pain on Inspiration, Chest Congestion, Excessive Mucous Production, Change in Mucous Color, Pain with Coughing, Other - Gastrointestinal Gastrointestinal: As Per HPI, Abdominal Pain, Bloating - Genitourinary Genitourinary: absent: As Per HPI, Change in Urinary Stream, Difficulty Urinating, Dysuria, Flank Pain, Hematuria, Pyuria, Nocturia, Urinary Incontinence, Urinary Frequency, Urinary Hesitance, Urinary Urgency, Voiding Freq/Small Amts, Freq UTI, Hx Renal/Bladder Calculi, Hx /Renal Surgery, Bladder Distension, Other - Reproductive: Female Reproductive:Female: absent: As Per HPI, Amenorrhea, Amenorrhea/ Control, Currently Menstual, Cycle <21 Days, Cycle >35 Days, Cycle Variable, Menses 1-7 Days, Menses >/= 8 Days, Menses Variable, Cycle > 4 Weeks Between, No Menses for 6 Months, Heavy Menses, Light Menses, Normal Menses, Spotting Between Cycles , S/P Hysterectomy, Menopausal, Post Menopausal, Premenarche, Abnormal Vaginal Bleeding, Dysmenorrhea, Dyspareunia, Genital Lesions, Genital Pruritis, Pelvic Pain, Prolapse Symptoms, Sexual Dysfunction, Vaginal Discharge, Vaginal Dryness , Vaginal Odor, Vaginal Pruritis, Other - Menstruation Menstruation: absent: As Per HPI, Amenorrhea, Amenorrhea/ Control, Currently Menstual, Cycle <21 Days, Cycle >35 Days, Cycle Variable, Menses 1-7 Days, Menses >/= 8 Days, Menses Variable, Cycle > 4 Weeks Between, No Menses for 6 Months, Heavy Menses, Light Menses, Normal Menses, Spotting Between Cycles , S/P Hysterectomy, Menopausal, Post Menopausal, Premenarche, Abnormal Vaginal Bleeding, Dysmenorrhea, Other - Musculoskeletal Musculoskeletal: absent: As Per HPI, Abnormal Gait, Arthralgias, Atrophy, Back Pain, Deformity, Joint Swelling, Limited Range of Motion, Loss of Height, Muscle Cramps, Muscle Weakness, Myalgias, Neck Pain, Numbness, Radiating Pain into Limb, Stiffness, Tingling, Other - Integumentary Integumentary: As Per HPI - Neurological Neurological: absent: As Per HPI, Abnormal Gait, Abnormal Hearing, Abnormal Movements, Abnormal Speech, Behavioral Changes, Burning Sensations, Confusion, Convulsions, Disequilibrium, Dizziness, Numbness, Focal Weakness, Frequent Falls , Headaches, Lack of Coordination, Loss of Vision, Memory Loss, Paresthesias, Radicular Pain, Restless Legs, Sensory Deficit, Syncope, Tingling, Tremor, Vertigo, Weakness, Other Visual Disturbances, Other - Psychiatric Psychiatric: absent: As Per HPI, Abnormal Sleep Pattern, Anhedonia, Anxiety, Auditory Hallucinations, Behavioral Changes, Change in Appetite, Change in Libido, Confusion, Depression, Difficulty Concentrating, Hallucinations, Homicidal Ideation, Hopelessness, Irritability, Memory Loss, Mood Swings, Panic Attacks, Paranoia, Suicidal Ideation, Visual Hallucinations, Tactile Hallucinations, Other - Endocrine Endocrine: absent: As Per HPI, Change in Body Appearance, Change in Libido, Cold Intolorance, Deepening of Voice, Excessive Sweating, Fatigue, Flushing, Heat Intolorance, Increase in Ring/Shoe/Hat Size, Palpitations, Polydipsia, Polyphagia, Polyuria, Other - Hematologic/Lymphatic Hematologic: absent: As Per HPI, Easy Bleeding, Easy Bruising, Lymphadenopathy, Other Past Patient History - Infectious Disease Hx of Infectious Diseases: None - Past Medical History & Family History Past Medical History?: Yes - Past Social History Smoking Status: Current Some Days Smoker - CARDIAC Hx Congestive Heart Failure: Yes Hx Hypertension: Yes - PULMONARY Hx Chronic Obstructive Pulmonary Disease (COPD): Yes - MUSCULOSKELETAL/RHEUMATOLOGICAL Hx Falls: No - GENITOURINARY/GYNECOLOGICAL Hx Incontinence: Yes - PSYCHIATRIC Hx Substance Use: No - SURGICAL HISTORY Hx Surgeries: No - ANESTHESIA Hx Anesthesia: No Meds Allergies/Adverse Reactions: Allergies Allergy/AdvReac Type Severity Reaction Status Date / Time No Known Allergies Allergy Verified 01/09/17 09:57 - Medications Medications: Current Medications Albuterol Sulfate (Albuterol 0.083% Inhal Raissa (2.5 Mg/3 Ml) Ud) 2.5 mg INH RQ6 [facility] Last Admin: 01/11/17 13:54 Dose: Not Given Clonidine HCl (Catapres) 0.2 mg PO BID [facility] Last Admin: 01/11/17 10:50 Dose: 0.2 mg Enoxaparin Sodium (Lovenox) 40 mg SC DAILY [facility] Last Admin: 01/11/17 10:51 Dose: 40 mg Furosemide (Lasix) 20 mg PO DAILY [facility] Last Admin: 01/11/17 10:50 Dose: 20 mg Dextrose/Sodium Chloride (Dextrose 5%/0.9% Ns 1000 Ml) 1,000 mls @ 100 mls/hr IV .Q10H [facility] Last Admin: 01/11/17 12:22 Dose: Not Given Piperacillin Sod/Tazobactam Sod (Zosyn 3.375 Gm Iv Premix) 50 mls @ 100 mls/hr IVPB Q8H [facility] Last Admin: 01/11/17 12:01 Dose: 100 mls/hr Losartan Potassium (Cozaar) 100 mg PO DAILY [facility] Last Admin: 01/11/17 10:51 Dose: 100 mg Metoprolol Succinate (Toprol Xl) 100 mg PO DAILY [facility] Last Admin: 01/11/17 10:50 Dose: 100 mg Morphine Sulfate (Morphine) 2 mg IVP Q6 PRN PRN Reason: Pain, moderate (4-7) Last Admin: 01/11/17 10:50 Dose: 2 mg Ondansetron HCl (Zofran Inj) 4 mg IVP Q6 PRN PRN Reason: Nausea/Vomiting Pantoprazole Sodium (Protonix Inj) 40 mg IVP DAILY [facility] Last Admin: 01/11/17 10:51 Dose: 40 mg Physical Exam - Constitutional Appears: Non-toxic, Chronically Ill - Head Exam Head Exam: ATRAUMATIC, NORMAL INSPECTION, NORMOCEPHALIC - Eye Exam Eye Exam: PERRL. absent: Scleral icterus - ENT Exam ENT Exam: Mucous Membranes Dry, Normal External Ear Exam, Normal Oropharynx - Neck Exam Neck exam: Negative for: Lymphadenopathy, Thyromegaly - Respiratory Exam Respiratory Exam: Decreased Breath Sounds, Clear to Auscultation Bilateral - Cardiovascular Exam Cardiovascular Exam: REGULAR RHYTHM, +S1, +S2 - GI/Abdominal Exam GI & Abdominal Exam: Diminished Bowel Sounds, Distended, Soft, Tenderness. absent: Guarding, Hernia, Organomegaly, Pulsatile Mass, Rebound, Rigid - Rectal Exam Rectal Exam: Deferred - Exam Exam: NORMAL INSPECTION - Extremities Exam Extremities exam: Positive for: pedal pulses present. Negative for: calf tenderness, pedal edema, tenderness - Back Exam Back exam: absent: CVA tenderness (L), CVA tenderness (R), paraspinal tenderness - Neurological Exam Neurological exam: Alert, CN II-XII Intact, Oriented x3, Reflexes Normal - Psychiatric Exam Psychiatric exam: Normal Mood - Skin Skin Exam: Dry Results - Vital Signs Recent Vital Signs: Last Vital Signs Temp 97.6 F 01/11/17 07:45 Pulse 55 L 01/11/17 12:36 Resp 20 01/11/17 07:45 BP 145/74 01/11/17 10:50 Pulse Ox 99 01/11/17 12:36 - Labs Result Diagrams: 01/11/17 10:30 01/11/17 10:30 Labs: Laboratory Results - last 24 hr 01/11/17 10:30 WBC 11.8 H RBC 4.14 Hgb 11.1 D Hct 33.1 L MCV 80.0 L MCH 26.9 L MCHC 33.6 RDW 13.8 Plt Count 302 D MPV 7.6 Neut % (Auto) 73.8 Lymph % (Auto) 16.3 L Steele % (Auto) 6.8 Eos % (Auto) 2.2 Baso % (Auto) 0.9 Neut # 8.7 H Lymph # 1.9 Steele # 0.8 Eos # 0.3 Baso # 0.1 Sodium 129 L Potassium 4.3 Chloride 93 L Carbon Dioxide 25 Anion Gap 15 BUN 13 Creatinine 1.0 Est GFR ( Amer) > 60 Est GFR (Non-Af Amer) 54 Random Glucose 88 Calcium 8.1 L Total Bilirubin 0.4 GGT 41 AST 24 ALT 27 Alkaline Phosphatase 133 H D Total Protein 6.0 L Albumin 3.3 L D Globulin 2.8 Albumin/Globulin Ratio 1.2 Assessment & Plan (1) Gastroenteritis Status: Acute (2) Gastrointestinal hemorrhage Status: Acute - Assessment and Plan (Free Text) Assessment: 76 year old female with history of COPD, Hypertension, and Upper GI bleed secondary to PUD 07/2016 presenting with abdominal pain. CT A/P showing hepatic cysts, unremarkable gallbladder, and normal bowel loops. Prior EGD 07/2016 with multiple linear gastric ulcers, RECENT FALL WITH RIB FX NOTED CHOLECYSTITIS LESS LIKELY IV RX IN [facility]
--- NOTE | 2017-01-11 16:45 | CP.PCM.PN ---
Subjective - Date & Time of Evaluation Date of Evaluation: 01/11/17 Time of Evaluation: 12:15 - Subjective Subjective: CONDITION SAME. POOR APPETITE. RIB PAIN. ULTRASOUND NEG. Objective - Vital Signs/Intake and Output Vital Signs (last 24 hours): Temp Pulse Resp BP Pulse Ox 97.6 F 55 L 20 145/74 99 01/11/17 07:45 01/11/17 12:36 01/11/17 07:45 01/11/17 10:50 01/11/17 12:36 Intake and Output: 01/11/17 01/11/17 06:59 18:59 Intake Total 300 350 Output Total 250 Balance 50 350 - Medications Medications: Current Medications Albuterol Sulfate (Albuterol 0.083% Inhal Raissa (2.5 Mg/3 Ml) Ud) 2.5 mg INH RQ6 [facility] Last Admin: 01/11/17 13:54 Dose: Not Given Clonidine HCl (Catapres) 0.2 mg PO BID [facility] Last Admin: 01/11/17 10:50 Dose: 0.2 mg Enoxaparin Sodium (Lovenox) 40 mg SC DAILY [facility] Last Admin: 01/11/17 10:51 Dose: 40 mg Furosemide (Lasix) 20 mg PO DAILY [facility] Last Admin: 01/11/17 10:50 Dose: 20 mg Dextrose/Sodium Chloride (Dextrose 5%/0.9% Ns 1000 Ml) 1,000 mls @ 100 mls/hr IV .Q10H [facility] Last Admin: 01/11/17 12:22 Dose: Not Given Piperacillin Sod/Tazobactam Sod (Zosyn 3.375 Gm Iv Premix) 50 mls @ 100 mls/hr IVPB Q8H [facility] Last Admin: 01/11/17 12:01 Dose: 100 mls/hr Losartan Potassium (Cozaar) 100 mg PO DAILY [facility] Last Admin: 01/11/17 10:51 Dose: 100 mg Metoprolol Succinate (Toprol Xl) 100 mg PO DAILY [facility] Last Admin: 01/11/17 10:50 Dose: 100 mg Morphine Sulfate (Morphine) 2 mg IVP Q6 PRN PRN Reason: Pain, moderate (4-7) Last Admin: 01/11/17 10:50 Dose: 2 mg Ondansetron HCl (Zofran Inj) 4 mg IVP Q6 PRN PRN Reason: Nausea/Vomiting Pantoprazole Sodium (Protonix Inj) 40 mg IVP DAILY [facility] Last Admin: 01/11/17 10:51 Dose: 40 mg - Labs Labs: 01/11/17 10:30 01/11/17 10:30 - Constitutional Appears: No Acute Distress, Chronically Ill - Eye Exam Eye Exam: Normal appearance, PERRL - ENT Exam ENT Exam: Normal Exam - Respiratory Exam Respiratory Exam: Clear to Ausculation Bilateral, NORMAL BREATHING PATTERN - Cardiovascular Exam Cardiovascular Exam: REGULAR RHYTHM, +S1, +S2 - GI/Abdominal Exam GI & Abdominal Exam: Soft, Normal Bowel Sounds. absent: Tenderness - Neurological Exam Neurological Exam: Alert, Awake, CN II-XII Intact, Normal Gait, Oriented x3 - Psychiatric Exam Psychiatric exam: Normal Affect, Normal Mood Assessment and Plan - Assessment and Plan (Free Text) Assessment: DIVERTICULITIS. Plan: CT PRESENT TREATMENT.
[2017-01-12] MEDS: Albuterol 0.083% Inhal Sol (2.5 mg/3 mL) UD INH SCH ×3 (01:11→13:36)
[2017-01-12] MEDS: Piperacill/Tazo 3.375gm in Dex 50 ML IVPB SCH ×2 (04:07→12:38)
[2017-01-12] MEDS: Dextrose 5%/0.9% NS 1,000 ML IV SCH (06:43)
[2017-01-12 08:52] VITALS: BP 104/55; PULSE 53; RESP 18; TEMP 98.7; O2SAT 98
[2017-01-12] MEDS: Enoxaparin 40 mg Syringe SC SCH ×2 (10:17→10:24)
[2017-01-12] MEDS: Metoprolol Succinate 100 mg XL Tab PO SCH (10:18)
--- NOTE | 2017-01-12 12:45 | CP.PCM.PN ---
Subjective - Date & Time of Evaluation Date of Evaluation: 01/12/17 Time of Evaluation: 12:43 - Subjective Subjective: REFUSES IN ACCESS. NO FEVER. MILD ABD PAIN PRESENT. WANTS TO GO HOME. Objective - Vital Signs/Intake and Output Vital Signs (last 24 hours): Temp Pulse Resp BP Pulse Ox 98.7 F 53 L 18 104/55 L 98 01/12/17 07:00 01/12/17 07:00 01/12/17 07:00 01/12/17 10:18 01/12/17 07:00 Intake and Output: 01/12/17 01/12/17 06:59 18:59 Intake Total 530 Balance 530 - Medications Medications: Current Medications Albuterol Sulfate (Albuterol 0.083% Inhal Raissa (2.5 Mg/3 Ml) Ud) 2.5 mg INH RQ6 [facility] Last Admin: 01/12/17 08:40 Dose: 2.5 mg Clonidine HCl (Catapres) 0.2 mg PO BID [facility] Last Admin: 01/12/17 10:16 Dose: 0.2 mg Enoxaparin Sodium (Lovenox) 40 mg SC DAILY [facility] Last Admin: 01/12/17 10:24 Dose: Not Given Furosemide (Lasix) 20 mg PO DAILY [facility] Last Admin: 01/12/17 10:18 Dose: Not Given Dextrose/Sodium Chloride (Dextrose 5%/0.9% Ns 1000 Ml) 1,000 mls @ 100 mls/hr IV .Q10H [facility] Last Admin: 01/12/17 06:43 Dose: Not Given Piperacillin Sod/Tazobactam Sod (Zosyn 3.375 Gm Iv Premix) 50 mls @ 100 mls/hr IVPB Q8H [facility] Last Admin: 01/12/17 12:38 Dose: Not Given Losartan Potassium (Cozaar) 100 mg PO DAILY [facility] Last Admin: 01/12/17 10:18 Dose: 100 mg Metoprolol Succinate (Toprol Xl) 100 mg PO DAILY [facility] Last Admin: 01/12/17 10:18 Dose: 100 mg Morphine Sulfate (Morphine) 2 mg IVP Q6 PRN PRN Reason: Pain, moderate (4-7) Last Admin: 01/11/17 10:50 Dose: 2 mg Ondansetron HCl (Zofran Inj) 4 mg IVP Q6 PRN PRN Reason: Nausea/Vomiting Pantoprazole Sodium (Protonix Inj) 40 mg IVP DAILY [facility] Last Admin: 01/12/17 10:25 Dose: Not Given - Labs Labs: 01/11/17 10:30 01/11/17 10:30 - Constitutional Appears: No Acute Distress, Chronically Ill - Eye Exam Eye Exam: Normal appearance, PERRL - ENT Exam ENT Exam: Normal Exam - Respiratory Exam Respiratory Exam: Clear to Ausculation Bilateral, NORMAL BREATHING PATTERN - GI/Abdominal Exam GI & Abdominal Exam: Soft, Normal Bowel Sounds. absent: Tenderness - Extremities Exam Extremities Exam: Full ROM, Normal Capillary Refill, Normal Inspection. absent : Joint Swelling, Pedal Edema - Back Exam Back Exam: NORMAL INSPECTION - Neurological Exam Neurological Exam: Alert, Awake, CN II-XII Intact, Normal Gait, Oriented x3 Assessment and Plan - Assessment and Plan (Free Text) Assessment: DIVERTICULITIS. Plan: DISCHARGE HOME.
--- NOTE | 2017-01-12 13:49 | PCM.HF ---
Heart Failure Core Measure - Heart Failure Left Ventricular Function to be assessed after discharge: Yes TENZIN Inhibitor Prescribed: Yes Beta-Christopher Prescribed: Metoprolol Succinate Angiotensin II Receptor Christopher Prescribed: No Contraindication/Reason for not providing: on tenzin AnticoagulationTherapy for Atrial Fibrillation/Atrialflutter: No Contraindication/Reason for not providing: no afib Aldosterone Antagonist Prescribed: No Contraindication/Reason for not providing: BP is controlled Hydralazine Nitrate Prescribed: No Contraindication/Reason for not providing: low BP Implantable Cardioverter Defibrillator Therapy: No
== END 2017-01-12 16:30 | disposition home or self-care (01) | DRG 392 ==
LOC: C.ER 09:43 → C.9E 15:40 → C.3T 19:57 → OBSVTOIN 01-10 18:17
PROVIDERS: ADMIT Internal Medicine; ATTEND Internal Medicine
DX: K57.92 Diverticulitis of intestine, part unspecified, without perforation or abscess without bleeding (principal); K52.9 Noninfective gastroenteritis and colitis, unspecified; K29.00 Acute gastritis without bleeding; E87.1 Hypo-osmolality and hyponatremia; I11.0 Hypertensive heart disease with heart failure; I50.9 Heart failure, unspecified; K76.89 Other specified diseases of liver; S22.32XA Fracture of one rib, left side, initial encounter for closed fracture; W19.XXXA Unspecified fall, initial encounter; D72.829 Elevated white blood cell count, unspecified; I25.10 Atherosclerotic heart disease of native coronary artery without angina pectoris; J44.9 Chronic obstructive pulmonary disease, unspecified; F17.210 Nicotine dependence, cigarettes, uncomplicated; L80 Vitiligo; Z87.11 Personal history of peptic ulcer disease; Y92.009 Unspecified place in unspecified non-institutional (private) residence as the place of occurrence of the external cause

== ENCOUNTER 2019-03-03 14:42 | Outpatient (CLI) | payer MEDICARE | END 2019-03-03 14:43 | disposition home or self-care (01) | LOC: C.RADIC 14:42 ==